=== PATIENT | female | born 1980 ===

== ENCOUNTER 2018-03-19 16:11 | Inpatient (IN) | payer BC, OTHER ==
[2018-03-19 16:12] VITALS: BMI 32.1
[2018-03-19] MEDS ORDERED: Sodium Chloride 0.9% 1,000 ML IV STA (17:51)
[2018-03-19] MEDS ORDERED: Morphine 4 MG/ML VIAL IV STA (17:51)
--- NOTE | 2018-03-19 18:18 | ED PDOC ---
HPI: Abdomen Time Seen by Provider: 03/19/18 17:47 Chief Complaint (Nursing): Abdominal Pain Chief Complaint (Provider): abdominal pain History Per: Patient History/Exam Limitations: no limitations Onset/Duration Of Symptoms: Hrs (12), Sudden Onset Current Symptoms Are (Timing): Still Present Context: Food Location Of Pain/Discomfort: RUQ, Epigastric Quality Of Discomfort: Sharp Associated Symptoms: Nausea, Vomiting, Loss Of Appetite Exacerbating Factors: None Alleviating Factors: None Additional Complaint(s): 37yo female approx 1 month post presents from [facility] urgent care for RUQ pain, nausea and one episode nonbloody vomiting this morning. Pain sharp, constant, no radiation. Was cleared by OB last week, no issues. Past Medical History Reviewed: Historical Data, Nursing Documentation, Vital Signs Vital Signs: Last Vital Signs Temp 97.9 F 03/19/18 17:05 Pulse 61 03/19/18 17:05 Resp 16 03/19/18 17:05 BP 120/78 03/19/18 17:05 Pulse Ox 99 03/19/18 17:05 - Medical History PMH: No Chronic Diseases - Surgical History Surgical History: No Surg Hx - Family History Family History: States: Unknown Family Hx - Social History Current smoker - smoking cessation education provided: No - Allergies Allergies/Adverse Reactions: Allergies Allergy/AdvReac Type Severity Reaction Status Date / Time No Known Allergies Allergy Verified 03/19/18 17:05 Review of Systems Constitutional: Negative for: Fever Eyes: Negative for: Vision Change Cardiovascular: Negative for: Chest Pain Respiratory: Negative for: Shortness of Breath Gastrointestinal: Positive for: Nausea, Vomiting, Abdominal Pain. Negative for: Melena Genitourinary Female: Negative for: Dysuria, Hematuria Musculoskeletal: Negative for: Neck Pain, Back Pain Neurological: Negative for: Weakness, Altered Mental Status, Headache Psych: Negative for: Suicidal ideation Physical Exam - Reviewed Nursing Documentation Reviewed: Yes Vital Signs Reviewed: Yes - Physical Exam Appears: Positive for: Well, Non-toxic, No Acute Distress Head Exam: Positive for: ATRAUMATIC, NORMAL INSPECTION, NORMOCEPHALIC Skin: Positive for: Normal Color, Warm, DRY Eye Exam: Positive for: Normal appearance, EOMI, PERRL. Negative for: Scleral icterus ENT: Positive for: Normal ENT Inspection Neck: Positive for: Normal, Painless ROM Cardiovascular/Chest: Positive for: Regular Rate, Rhythm Respiratory: Positive for: CNT, Normal Breath Sounds Gastrointestinal/Abdominal: Positive for: Soft, Tenderness (RUQ), Guarding. Negative for: Rebound Back: Positive for: Normal Inspection Extremity: Positive for: Normal ROM Neurologic/Psych: Positive for: Alert, Oriented - ECG O2 Sat by Pulse Oximetry: 99 Pulse Ox Interpretation: Normal Medical Decision Making Medical Decision Making: obtain US and labs r/o cholecystitis/ cholelithiasis/ ascending cholangitis given quality of pain, post Accession No. : [id number] Patient Name / ID : TORI SNIDER / [id number] Exam Date : 03/19/2018 17:50:48 ( Approved ) Study Comment : Sex / Age : F / 37Y Creator : Heather Alba MD Dictator : Heather Alba MD Importer Or Exporter : [employer] Consultant : Heather Alba MD Approver2 : Report Date : 03/19/2018 18:44:08 My Comment : Date of service: 03/19/2018 HISTORY: RUQ /flank pain nausea vomiting COMPARISON: None available. TECHNIQUE: Sonographic evaluation of the right upper quadrant of the abdomen. FINDINGS: LIVER: Measures 17.8 cm in length and appears within normal limits of shape, size, and echotexture. No focal hepatic mass identified. The main portal vein appears patent with normal directional flow. No intrahepatic bile duct dilatation. GALLBLADDER: Gallstones. Gallbladder sludge. No gallbladder wall thickening or pericholecystic edema. Positive sonographic Leonardo's sign as assessed by the tire repairer. COMMON BILE DUCT: Measures 6 mm. PANCREAS: Not well-visualized. RIGHT KIDNEY: Measures approximately 9.8 x 4.3 x 4.4 cm. No obstructing calculus or hydronephrosis identified. AORTA: Limited visualization appears grossly unremarkable. IVC: Limited visualization appears grossly unremarkable. OTHER FINDINGS: None . IMPRESSION: Cholelithiasis. Gallbladder sludge. Positive sonographic Leonardo's sign as assessed by the tire repairer. The gallbladder wall does not appear thickened. Correlate clinically for possibility of cholecystitis. endorsed Dr Patel pending labs and re-eval Disposition - Clinical Impression Clinical Impression: Abdominal pain - Patient ED Disposition Is Patient to be Admitted: Transfer of Care Counseled Patient/Family Regarding: Studies Performed, Diagnosis - Disposition Disposition: Transfer of Care Disposition Time: 19:05 Condition: STABLE Forms: [employer] (Faroese)
--- NOTE | 2018-03-19 18:48 | US ---
Date of service: 03/19/2018 HISTORY: RUQ /flank pain nausea vomiting COMPARISON: None available. TECHNIQUE: Sonographic evaluation of the right upper quadrant of the abdomen. FINDINGS: LIVER: Measures 17.8 cm in length and appears within normal limits of shape, size, and echotexture. No focal hepatic mass identified. The main portal vein appears patent with normal directional flow. No intrahepatic bile duct dilatation. GALLBLADDER: Gallstones. Gallbladder sludge. No gallbladder wall thickening or pericholecystic edema. Positive sonographic Leonardo's sign as assessed by the residential mental health worker. COMMON BILE DUCT: Measures 6 mm. PANCREAS: Not well-visualized. RIGHT KIDNEY: Measures approximately 9.8 x 4.3 x 4.4 cm. No obstructing calculus or hydronephrosis identified. AORTA: Limited visualization appears grossly unremarkable. IVC: Limited visualization appears grossly unremarkable. OTHER FINDINGS: None . IMPRESSION: Cholelithiasis. Gallbladder sludge. Positive sonographic Leonardo's sign as assessed by the residential mental health worker. The gallbladder wall does not appear thickened. Correlate clinically for possibility of cholecystitis.
[2018-03-19 19:05] LABS: BASO % 0.3 % (0.0-2.0); EOS % 0.3 % (0.0-4.0); HEMOGLOBIN 13.8 g/dL (12.0-16.0); LYMPH # 1.2 K/uL (1.0-4.3); LYMPH % 17.1 % (20.0-40.0); MEAN CORPUSCULAR HEMOGLOBIN 27.4 pg (27.0-31.0); MEAN CORPUSCULAR HGB CONC 32.7 g/dL (33.0-37.0); MEAN PLATELET VOLUME 8.6 fl (7.2-11.7); MONO # 0.3 K/uL (0.0-0.8); MONO % 4.7 % (0.0-10.0); NEUT # 5.3 K/uL (1.8-7.0); NEUT % 77.6 % (50.0-75.0); NRBC % 0.1 % (0.0-0.0); RBC 5.03 Mil/uL (3.80-5.20); RED CELL DISTRIBUTION WIDTH 13.9 % (11.5-14.5); WHITE BLOOD COUNT 6.8 K/uL (4.8-10.8)
--- NOTE | 2018-03-19 19:13 | ED PDOC ---
- Laboratory Results Result Diagrams: 03/19/18 18:39 03/19/18 18:35 - ECG O2 Sat by Pulse Oximetry: 99 (RA) Pulse Ox Interpretation: Normal Medical Decision Making Medical Decision Making: Time: 1899 Patient endorsed to me by Dr. Puckett, pending blood work and reevaluation. Time: 1999 Patient re-evaluated at bedside, states she is feeling well. Has elevation in LFTs Spoke with manager surgical who evaluated patient at bedside States that patient is to be admitted to Dr. Rolon for Acute Cholecystitis Scribe Attestation: Documented by Kenny Juarez, acting as a scribe for Ray Patel MD. Provider Scribe Attestation: All medical record entries made by the Scribe were at my direction and personally dictated by me. I have reviewed the chart and agree that the record accurately reflects my personal performance of the history, physical exam, medical decision making, and the department course for this patient. I have also personally directed, reviewed, and agree with the discharge instructions and disposition. Disposition Discussed With : Bert Woody - Clinical Impression Clinical Impression: Abdominal pain - POA Present On Arrival: None - Disposition Disposition: Admitted as In-Patient Disposition Time: 20:00 Condition: FAIR Forms: [facility] ([place]an)
[2018-03-19 19:14] LABS: ALB/GLOB RATIO 1.3 (1.0-2.1); ALBUMIN 4.4 g/dL (3.5-5.0); ALT/SGPT 221 U/L (9-52); AST/SGOT 190 U/L (14-36); BLOOD UREA NITROGEN 11 mg/dl (7-17); CALCIUM 9.6 mg/dL (8.4-10.2); GFR NON-AFRICAN AMERICAN > 60; LIPASE 365 U/L (23-300)
--- NOTE | 2018-03-19 19:40 | CP.PCM.CON ---
History of Present Illness - History of Present Illness History of Present Illness: SURGERY NOTE FOR DR. GIL Reason for consult: Cholelithiasis 37F presents to the ER for right upper quadrant pain. Patient states pain began this morning and she has never had anything like it before. Patient admits to having nausea and was vomiting during the day. Denies fevers and chills. She is currently one month post-. She last ate at 430pm. Denies any family history of gallbladder issue. PMH: denies PSH: denies Social: denies tobacco, alcohol, illicit drug use Allergies: NKDA Meds Allergies/Adverse Reactions: Allergies Allergy/AdvReac Type Severity Reaction Status Date / Time No Known Allergies Allergy Verified 03/19/18 17:05 Physical Exam - Constitutional Appears: Non-toxic, No Acute Distress - Eye Exam Eye Exam: EOMI, PERRL - ENT Exam ENT Exam: Mucous Membranes Moist - Respiratory Exam Respiratory Exam: Clear to Auscultation Bilateral, NORMAL BREATHING PATTERN - Cardiovascular Exam Cardiovascular Exam: REGULAR RHYTHM, +S1, +S2 - GI/Abdominal Exam GI & Abdominal Exam: Soft. absent: Distended, Firm, Guarding, Rebound, Rigid, Tenderness - Extremities Exam Extremities exam: Negative for: pedal edema, tenderness - Neurological Exam Neurological exam: Alert, Oriented x3 - Psychiatric Exam Psychiatric exam: Normal Affect, Normal Mood - Skin Skin Exam: Dry, Intact, Normal Color, Warm Results - Vital Signs Recent Vital Signs: Last Vital Signs Temp 97.9 F 03/19/18 17:05 Pulse 61 03/19/18 17:05 Resp 16 03/19/18 17:05 BP 120/78 03/19/18 17:05 Pulse Ox 99 03/19/18 19:13 - Labs Result Diagrams: 03/19/18 18:39 03/19/18 18:35 Labs: Laboratory Results - last 24 hr 03/19/18 03/19/18 18:35 18:39 WBC 6.8 RBC 5.03 Hgb 13.8 Hct 42.2 MCV 84.0 MCH 27.4 MCHC 32.7 L RDW 13.9 Plt Count 319 MPV 8.6 Neut % (Auto) 77.6 H Lymph % (Auto) 17.1 L [place] % (Auto) 4.7 Eos % (Auto) 0.3 Baso % (Auto) 0.3 Neut # (Auto) 5.3 Lymph # (Auto) 1.2 [place] # (Auto) 0.3 Eos # (Auto) 0.0 Baso # (Auto) 0.0 Sodium 140 Potassium 3.9 Chloride 101 Carbon Dioxide 26 Anion Gap 17 BUN 11 Creatinine 0.6 L Est GFR ( Amer) > 60 Est GFR (Non-Af Amer) > 60 Random Glucose 104 Calcium 9.6 Total Bilirubin 2.1 H AST 190 H ALT 221 H Alkaline Phosphatase 143 H Total Protein 7.9 Albumin 4.4 Globulin 3.5 Albumin/Globulin Ratio 1.3 Lipase 365 H Assessment & Plan - Assessment and Plan (Free Text) Assessment: 37F with Cholecystitis, possible Pancreatitis Plan: - NPO - IV Fluid - Pain control - Anti-emetic - Antibiotics - MRCP in AM - Repeat labs in AM Discussed with Dr. Gonzales Woody, PGY3
--- NOTE | 2018-03-19 20:08 | CP.PCM.HP ---
History of Present Illness - History of Present Illness History of Present Illness: SURGERY NOTE FOR DR. GIL Reason for consult: Cholelithiasis 37F presents to the ER for right upper quadrant pain. Patient states pain began this morning and she has never had anything like it before. Patient admits to having nausea and was vomiting during the day. Denies fevers and chills. She is currently one month post-. She last ate at 430pm. Denies any family history of gallbladder issue. PMH: denies PSH: denies Social: denies tobacco, alcohol, illicit drug use Allergies: NKDA Present on Admission - Present on Admission Any Indicators Present on Admission: No Past Patient History - Past Social History Smoking Status: Never Smoked - PSYCHIATRIC Hx Substance Use: No - SURGICAL HISTORY Hx Surgeries: No - ANESTHESIA Hx Anesthesia: No Meds Allergies/Adverse Reactions: Allergies Allergy/AdvReac Type Severity Reaction Status Date / Time No Known Allergies Allergy Verified 03/19/18 17:05 Physical Exam - Constitutional Appears: Non-toxic, No Acute Distress - ENT Exam ENT Exam: Mucous Membranes Moist - Respiratory Exam Respiratory Exam: Clear to Auscultation Bilateral, NORMAL BREATHING PATTERN - Cardiovascular Exam Cardiovascular Exam: REGULAR RHYTHM, +S1, +S2 - GI/Abdominal Exam GI & Abdominal Exam: Soft, Tenderness (Epigastric/RUQ tenderness). absent: Distended, Firm, Guarding, Rebound, Rigid - Extremities Exam Extremities exam: Negative for: pedal edema, tenderness - Neurological Exam Neurological exam: Alert, Oriented x3 - Psychiatric Exam Psychiatric exam: Normal Affect, Normal Mood - Skin Skin Exam: Dry, Intact, Normal Color, Warm Results - Vital Signs Recent Vital Signs: Last Vital Signs Temp 97.9 F 03/19/18 17:05 Pulse 61 03/19/18 17:05 Resp 16 03/19/18 17:05 BP 120/78 03/19/18 17:05 Pulse Ox 99 03/19/18 19:13 - Labs Result Diagrams: 03/19/18 18:39 03/19/18 18:35 Labs: Laboratory Results - last 24 hr 03/19/18 03/19/18 18:35 18:39 WBC 6.8 RBC 5.03 Hgb 13.8 Hct 42.2 MCV 84.0 MCH 27.4 MCHC 32.7 L RDW 13.9 Plt Count 319 MPV 8.6 Neut % (Auto) 77.6 H Lymph % (Auto) 17.1 L [place] % (Auto) 4.7 Eos % (Auto) 0.3 Baso % (Auto) 0.3 Neut # (Auto) 5.3 Lymph # (Auto) 1.2 [place] # (Auto) 0.3 Eos # (Auto) 0.0 Baso # (Auto) 0.0 Sodium 140 Potassium 3.9 Chloride 101 Carbon Dioxide 26 Anion Gap 17 BUN 11 Creatinine 0.6 L Est GFR ( Amer) > 60 Est GFR (Non-Af Amer) > 60 Random Glucose 104 Calcium 9.6 Total Bilirubin 2.1 H AST 190 H ALT 221 H Alkaline Phosphatase 143 H Total Protein 7.9 Albumin 4.4 Globulin 3.5 Albumin/Globulin Ratio 1.3 Lipase 365 H Assessment & Plan - Assessment and Plan (Free Text) Assessment: 37F with Cholecystitis, possible Pancreatitis Plan: - NPO - IV Fluid - Pain control - Anti-emetic - Antibiotics - MRCP in AM - Repeat labs in AM Discussed with Dr. Gonzales Woody, PGY3
[2018-03-19] MEDS ORDERED: Piperacillin/Tazobact 3.375 gm Inj IVPB ONE (21:15)
[2018-03-19] MEDS: Piperacillin/Tazobact 3.375 GM in Sodium Chloride 0.9% 100 ML IVPB SCH (21:17)
[2018-03-19] MEDS: Lactated Ringer's 1,000 ML IV SCH (21:24)
[2018-03-19] MEDS ORDERED: HYDROmorphone 1 mg/ml ISec IVP PRN (21:30)
[2018-03-20] MEDS ORDERED: Piperacillin/Tazobact 3.375 gm Inj IVPB ONE (04:30)
[2018-03-20] MEDS: Piperacillin/Tazobact 3.375 GM in Sodium Chloride 0.9% 100 ML IVPB SCH ×4 (04:36→23:19)
[2018-03-20] MEDS: Lactated Ringer's 1,000 ML IV SCH ×3 (04:40→23:21)
[2018-03-20 05:20] LABS: SQUAMOUS EPITHIAL 7 /hpf (0-5); URINE BACTERIA MANY (<OCC); URINE BILIRUBIN SMALL (NEGATIVE); URINE BLOOD MODERATE (NEGATIVE); URINE CLARITY CLOUDY (Clear); URINE COLOR AMBER (YELLOW); URINE GLUCOSE (UA) NEG (NEGATIVE); URINE LEUKOCYTE ESTERASE LARGE Leu/uL (Negative); URINE PROTEIN 30 mg/dL (NEGATIVE)
[2018-03-20 06:11] LABS: BASO % 0.6 % (0.0-2.0); EOS # 0.1 K/uL (0.0-0.7); EOS % 1.5 % (0.0-4.0); HEMOGLOBIN 12.4 g/dL (12.0-16.0); LYMPH # 1.7 K/uL (1.0-4.3); LYMPH % 27.9 % (20.0-40.0); MEAN CELL VOLUME 84.3 fl (81.0-99.0); MEAN CORPUSCULAR HEMOGLOBIN 27.9 pg (27.0-31.0); MEAN CORPUSCULAR HGB CONC 33.1 g/dL (33.0-37.0); MEAN PLATELET VOLUME 8.6 fl (7.2-11.7); MONO # 0.4 K/uL (0.0-0.8); MONO % 6.4 % (0.0-10.0); NEUT # 3.9 K/uL (1.8-7.0); NEUT % 63.6 % (50.0-75.0); RBC 4.43 Mil/uL (3.80-5.20); RED CELL DISTRIBUTION WIDTH 14.1 % (11.5-14.5); WHITE BLOOD COUNT 6.1 K/uL (4.8-10.8)
[2018-03-20 06:42] LABS: ALB/GLOB RATIO 1.2 (1.0-2.1); ALBUMIN 3.5 g/dL (3.5-5.0); ALT/SGPT 296 U/L (9-52); AST/SGOT 250 U/L (14-36); BLOOD UREA NITROGEN 11 mg/dl (7-17); CALCIUM 8.5 mg/dL (8.4-10.2); GFR NON-AFRICAN AMERICAN > 60
--- NOTE | 2018-03-20 07:13 | CP.PCM.PN ---
Subjective - Date & Time of Evaluation Date of Evaluation: 03/20/18 Time of Evaluation: 07:11 - Subjective Subjective: SURGERY NOTE FOR DR. GIL 37F seen and examined at bedside. Patient continues to complain of abdominal pain, denies nausea, vomiting. Pain in the epigastric/RUQ region. Objective - Vital Signs/Intake and Output Vital Signs (last 24 hours): Temp Pulse Resp BP Pulse Ox 98.1 F 57 L 18 120/72 98 03/20/18 06:01 03/20/18 06:01 03/20/18 06:01 03/20/18 06:01 03/20/18 06:01 - Medications Medications: Current Medications Hydromorphone HCl (Dilaudid) 1 mg IVP Q4 PRN PRN Reason: Pain, severe (8-10) Last Admin: 03/19/18 21:47 Dose: 1 mg Lactated Ringer's (Lactated Ringer's) 1,000 mls @ 125 mls/hr IV .Q8H KACY Last Admin: 03/20/18 04:40 Dose: 125 mls/hr Piperacillin Sod/Tazobactam (Sod 3.375 gm/ Sodium Chloride) 100 mls @ 100 mls/hr IVPB Q6 KACY; Protocol Last Admin: 03/20/18 04:36 Dose: 100 mls/hr Ketorolac Tromethamine (Toradol) 30 mg IVP Q6 PRN PRN Reason: Pain, severe (8-10) Last Admin: 03/20/18 05:28 Dose: 30 mg Ondansetron HCl (Zofran Inj) 4 mg IVP Q6 PRN PRN Reason: Nausea/Vomiting Last Admin: 03/19/18 22:50 Dose: 4 mg - Labs Labs: 03/20/18 05:35 03/20/18 05:35 - Constitutional Appears: Non-toxic, No Acute Distress - Respiratory Exam Respiratory Exam: Clear to Ausculation Bilateral, NORMAL BREATHING PATTERN - Cardiovascular Exam Cardiovascular Exam: REGULAR RHYTHM, +S1, +S2 - GI/Abdominal Exam GI & Abdominal Exam: Soft, Tenderness (epigastric/RUQ region). absent: Distended, Firm, Guarding, Rigid, Rebound Assessment and Plan - Assessment and Plan (Free Text) Assessment: 37F with symptomatic cholelithiasis, possible choledocholithiasis Plan: - NPO - IVF - Antibiotics - MRCP today - If neg, then will plan for OR tomm Discussed with Dr. Gonzales Woody, PGY3
--- NOTE | 2018-03-20 14:47 | MRI ---
MRCP Indication: r/o choledocholithiasis Technique: Multiplanar, multisequence MR images of the abdomen were obtained, including heavily T2 weighted MRCP images of the biliary system. Rotating maximum intensity projection images of the biliary system were generated. A total of 581 images were submitted for review. Comparison: Limited abdominal ultrasound performed 03/19/18 Findings: The liver appears grossly unremarkable on this noncontrast examination. Gallstones. Gallbladder distension. Gallbladder wall thickening/pericholecystic edema. There is no intrahepatic biliary ductal dilatation. The common bile duct appears within normal limits in caliber and tapers distally. The pancreatic duct appears within normal limits of caliber. No filling defects are seen in the common bile duct or pancreatic duct. The visualized portions of the noncontrast adrenal glands, kidneys, spleen, and pancreas appear unremarkable. No bulky abdominal lymphadenopathy is seen. No ascites. No suspicious osseous lesions appreciated. Impression: Cholelithiasis. Gallbladder distension. Gallbladder wall thickening/pericholecystic edema. Appearance consistent with acute cholecystitis. Correlate clinically. No filling defects seen within the common bile duct which appears within normal limits of caliber.
[2018-03-21] MEDS: Lactated Ringer's 1,000 ML IV SCH ×3 (03:27→21:33)
[2018-03-21] MEDS: Piperacillin/Tazobact 3.375 GM in Sodium Chloride 0.9% 100 ML IVPB SCH ×4 (05:15→21:34)
[2018-03-21 09:45] LABS: BASO % 0.7 % (0.0-2.0); EOS # 0.2 K/uL (0.0-0.7); EOS % 3.8 % (0.0-4.0); HEMOGLOBIN 11.9 g/dL (12.0-16.0); LYMPH # 1.8 K/uL (1.0-4.3); LYMPH % 36.9 % (20.0-40.0); MEAN CELL VOLUME 85.1 fl (81.0-99.0); MEAN CORPUSCULAR HGB CONC 32.9 g/dL (33.0-37.0); MEAN PLATELET VOLUME 8.7 fl (7.2-11.7); MONO # 0.3 K/uL (0.0-0.8); MONO % 6.4 % (0.0-10.0); NEUT # 2.6 K/uL (1.8-7.0); NEUT % 52.2 % (50.0-75.0); NRBC % 0.1 % (0.0-0.0); RBC 4.25 Mil/uL (3.80-5.20); RED CELL DISTRIBUTION WIDTH 14.3 % (11.5-14.5)
[2018-03-21 09:57] LABS: ALB/GLOB RATIO 1.1 (1.0-2.1); ALBUMIN 3.3 g/dL (3.5-5.0); ALT/SGPT 209 U/L (9-52); AST/SGOT 92 U/L (14-36); BLOOD UREA NITROGEN 7 mg/dl (7-17); CALCIUM 8.5 mg/dL (8.4-10.2); GFR NON-AFRICAN AMERICAN > 60
[2018-03-21] MEDS ORDERED: Bupivacaine 0.5% Inj(30mL) ONE (14:44)
[2018-03-21] MEDS ORDERED: Lidocaine 1% Inj (20ml) ONE (14:44)
[2018-03-21] MEDS ORDERED: ceFAZolin IV 1 gm in Dextrose 0 GM/0 ML BAG IVPB ONE (15:02)
[2018-03-21] MEDS ORDERED: Propofol 10 mg/ml Inj (20 ML) ONE (15:23)
[2018-03-21] MEDS ORDERED: Lidocaine 4% (Laryng-O-Jet) Kit MM ONE (15:23)
[2018-03-21] MEDS ORDERED: Rocuronium 10 mg/ml (5 ml) ONE (15:23)
[2018-03-21] MEDS ORDERED: Succinylcholine Chloride 20 mg/ml Syr (5 ml) IV ONE (15:23)
[2018-03-21] MEDS ORDERED: Dexamethasone 4 mg/1 ml ONE (15:27)
[2018-03-21] MEDS ORDERED: Lactated Ringer's 1,000 ML IV ONE ×3 (16:50→18:49)
[2018-03-21] MEDS ORDERED: Midazolam 2 MG/2 ML VIAL ONE (16:53)
[2018-03-21] MEDS ORDERED: Neostigmine 1:1000 (1 mg/ml) Inj ONE (17:58)
[2018-03-21] MEDS ORDERED: HYDROmorphone 0.5 mg/0.5 ml ISec IVP PRN (18:37)
--- NOTE | 2018-03-21 18:44 | PCM.SURG1 ---
Surgeon's Initial Post Op Note - Surgeon's Notes Surgeon: MD Gonzales Business Performance Analyst: Bong, PGY3 Pre-Operative Diagnosis: Acute cholecystitis Operative Findings: Inflammed gallbladder, gallstones Post-Operative Diagnosis: Acute cholecystitis Operation Performed: Laparoscopic cholecystitis Specimen/Specimens Removed: Gallbladder Estimated Blood Loss: EBL {In ML}: 5 Date of Surgery/Procedure: 03/21/18 Time of Surgery/Procedure: 18:44
[2018-03-21] MEDS ORDERED: Lactated Ringer's 1,000 ML IV SCH (18:45)
[2018-03-22] MEDS: Piperacillin/Tazobact 3.375 GM in Sodium Chloride 0.9% 100 ML IVPB SCH (03:32)
[2018-03-22] MEDS: Lactated Ringer's 1,000 ML IV SCH (04:31)
[2018-03-22 04:49] VITALS: O2SAT 97
[2018-03-22 05:21] LABS: BASO % 0.2 % (0.0-2.0); HEMOGLOBIN 11.8 g/dL (12.0-16.0); LYMPH % 19.8 % (20.0-40.0); MEAN CELL VOLUME 84.1 fl (81.0-99.0); MEAN CORPUSCULAR HEMOGLOBIN 28.3 pg (27.0-31.0); MEAN CORPUSCULAR HGB CONC 33.6 g/dL (33.0-37.0); MEAN PLATELET VOLUME 8.9 fl (7.2-11.7); MONO # 0.3 K/uL (0.0-0.8); MONO % 5.4 % (0.0-10.0); NEUT # 3.7 K/uL (1.8-7.0); NEUT % 74.6 % (50.0-75.0); NRBC % 0.1 % (0.0-0.0); RBC 4.17 Mil/uL (3.80-5.20); RED CELL DISTRIBUTION WIDTH 13.7 % (11.5-14.5)
[2018-03-22 05:40] LABS: ALB/GLOB RATIO 1.1 (1.0-2.1); ALBUMIN 3.3 g/dL (3.5-5.0); ALT/SGPT 162 U/L (9-52); AST/SGOT 56 U/L (14-36); BLOOD UREA NITROGEN 8 mg/dl (7-17); CALCIUM 8.5 mg/dL (8.4-10.2); GFR NON-AFRICAN AMERICAN > 60
[2018-03-22] MEDS ORDERED: Oxycodone/Acetaminophen 5/325 mg Tab PO PRN (06:53)
[2018-03-22 08:42] VITALS: BP 118/75; PULSE 56; RESP 20; TEMP 98.1
--- NOTE | 2018-03-22 10:27 | CP.PCM.DIS ---
Provider - Provider Date of Admission: 03/19/18 19:57 Attending physician: Marlon Rolon MD Time Spent in preparation of Discharge (in minutes): 35 Diagnosis - Discharge Diagnosis (1) S/P laparoscopic cholecystectomy Status: Acute Priority: High (2) Acute cholecystitis Status: Resolved Priority: High Hospital Course - Lab Results Lab Results: Most Recent Lab Values WBC 5.0 K/uL (4.8-10.8) 03/22/18 04:25 RBC 4.17 Mil/uL (3.80-5.20) 03/22/18 04:25 Hgb 11.8 g/dL (12.0-16.0) L 03/22/18 04:25 Hct 35.1 % (34.0-47.0) 03/22/18 04:25 MCV 84.1 fl (81.0-99.0) 03/22/18 04:25 MCH 28.3 pg (27.0-31.0) 03/22/18 04:25 MCHC 33.6 g/dL (33.0-37.0) 03/22/18 04:25 RDW 13.7 % (11.5-14.5) 03/22/18 04:25 Plt Count 277 K/uL (130-400) 03/22/18 04:25 MPV 8.9 fl (7.2-11.7) 03/22/18 04:25 Neut % (Auto) 74.6 % (50.0-75.0) 03/22/18 04:25 Lymph % (Auto) 19.8 % (20.0-40.0) L 03/22/18 04:25 [place] % (Auto) 5.4 % (0.0-10.0) 03/22/18 04:25 Eos % (Auto) 0.0 % (0.0-4.0) 03/22/18 04:25 Baso % (Auto) 0.2 % (0.0-2.0) 03/22/18 04:25 Neut # (Auto) 3.7 K/uL (1.8-7.0) 03/22/18 04:25 Lymph # (Auto) 1.0 K/uL (1.0-4.3) 03/22/18 04:25 [place] # (Auto) 0.3 K/uL (0.0-0.8) 03/22/18 04:25 Eos # (Auto) 0.0 K/uL (0.0-0.7) 03/22/18 04:25 Baso # (Auto) 0.0 K/uL (0.0-0.2) 03/22/18 04:25 Sodium 138 mmol/l (132-148) 03/22/18 04:25 Potassium 3.7 MMOL/L (3.6-5.0) 03/22/18 04:25 Chloride 100 mmol/L (98-107) 03/22/18 04:25 Carbon Dioxide 26 mmol/L (22-30) 03/22/18 04:25 Anion Gap 16 (10-20) 03/22/18 04:25 BUN 8 mg/dl (7-17) 03/22/18 04:25 Creatinine 0.7 mg/dl (0.7-1.2) 03/22/18 04:25 Est GFR ( Amer) > 60 03/22/18 04:25 Est GFR (Non-Af Amer) > 60 03/22/18 04:25 Random Glucose 111 mg/dL (65-105) H 03/22/18 04:25 Calcium 8.5 mg/dL (8.4-10.2) 03/22/18 04:25 Phosphorus 4.2 mg/dl (2.5-4.5) 03/20/18 05:35 Magnesium 1.7 MG/DL (1.6-2.3) 03/20/18 05:35 Total Bilirubin 0.4 mg/dl (0.2-1.3) 03/22/18 04:25 AST 56 U/L (14-36) H D 03/22/18 04:25 ALT 162 U/L (9-52) H D 03/22/18 04:25 Alkaline Phosphatase 109 U/L (38-126) 03/22/18 04:25 Total Protein 6.2 G/DL (6.3-8.2) L 03/22/18 04:25 Albumin 3.3 g/dL (3.5-5.0) L 03/22/18 04:25 Globulin 2.9 gm/dL (2.2-3.9) 03/22/18 04:25 Albumin/Globulin Ratio 1.1 (1.0-2.1) 03/22/18 04:25 Lipase 365 U/L (23-300) H 03/19/18 18:35 Urine Color [place] (YELLOW) 03/20/18 04:50 Urine Clarity Cloudy (Clear) 03/20/18 04:50 Urine pH 6.0 (5.0-8.0) 03/20/18 04:50 Ur Specific [place] 1.020 (1.003-1.030) 03/20/18 04:50 Urine Protein 30 mg/dL (NEGATIVE) 03/20/18 04:50 Urine Glucose (UA) Neg mg/dL (NEGATIVE) 03/20/18 04:50 Urine Ketones Negative mg/dL (NEGATIVE) 03/20/18 04:50 Urine Blood Moderate (NEGATIVE) 03/20/18 04:50 Urine Nitrate Negative (NEGATIVE) 03/20/18 04:50 Urine Bilirubin Small (NEGATIVE) 03/20/18 04:50 Urine Urobilinogen 2.0 mg/dL (0.2-1.0) H 03/20/18 04:50 Ur Leukocyte Esterase Large Perri/uL (Negative) 03/20/18 04:50 Urine RBC (Auto) 15 /hpf (0-3) H 03/20/18 04:50 Urine Microscopic WBC 95 /hpf (0-5) H 03/20/18 04:50 Ur Squamous Epith Cells 7 /hpf (0-5) H 03/20/18 04:50 Urine Bacteria Many (<OCC) H 03/20/18 04:50 - Hospital Course Hospital Course: Pt is a 37F with no significant PMH who presented to the ED with one day of right upper quadrant pain. US showed cholelithiasis and patient had hyperbilirubinemia. MRCP was ordered to rule out choledocholithiasis and was negative and patient's hyperbilirubinemia resolved by hospital day 2 and patient was taken to the OR for a laparoscopic cholecystectomy. Surgery was performed without complication and she recovered well, POD#1 tolerating regular diet, ambulation, pain controlled on PO pain medication, hemodynamically stable. Patient was discharged to home with PO pain medication and instructions to follow up with Dr. Rolon in his office in 2 weeks and to return to the ER for any concerning symptoms. For full hospital course, refer to chart Discharge Exam - Head Exam Head Exam: ATRAUMATIC, NORMOCEPHALIC - Eye Exam Eye Exam: Normal appearance. absent: Conjunctival injection, Scleral icterus - ENT Exam ENT Exam: Mucous Membranes Moist, Normal Oropharynx - Respiratory Exam Respiratory Exam: NORMAL BREATHING PATTERN. absent: Accessory Muscle Use, Respiratory Distress - Cardiovascular Exam Cardiovascular Exam: RRR - GI/Abdominal Exam GI & Abdominal Exam: Soft, Tenderness (RUQ and pushpa-incisional mild tenderness). absent: Distended, Rebound Additional comments: incisions well approximated with dermabond - Extremities Exam Extremities exam: normal inspection, pedal pulses present - Neurological Exam Neurological exam: Alert, Oriented x3 - Psychiatric Exam Psychiatric exam: Normal Affect, Normal Mood - Skin Skin Exam: Dry, Normal Color, Warm Discharge Plan - Discharge Medications Prescriptions: oxyCODONE/Acetaminophen [Percocet 5/325 mg Tab] 1 tab PO Q6H PRN #15 tab PRN Reason: Pain, Moderate (4-7) - Follow Up Plan Condition: FAIR Disposition: HOME/ ROUTINE Instructions: Cholecystectomy (DC) Additional Instructions: Call Dr. Rolon's office for follow up appointment in 2 weeks Take pain medication as needed for pain--take stool softeners for any constipation, do not drive or operate heavy machinery while taking pain medication Do not lift ?10 pounds for 4 weeks Resume diet as tolerated--recommend no fat for 2 weeks Return to ER or call Dr. Rolon's office for any severe nausea, vomiting, fever >100.4, or any other concerning symptoms. You may shower, but do not soak or swim, surgical glue will fall off on its own--do not remove Referrals: Bubba Reynoso MD [Family Provider] - Marlon Rolon MD [Staff Provider] -
--- NOTE | 2018-03-25 07:13 | OP ---
` PROCEDURE DATE: 03/21/2018 PREOPERATIVE DIAGNOSIS: Acute cholecystitis. POSTOPERATIVE DIAGNOSIS: Acute cholecystitis. PROCEDURE PERFORMED: Laparoscopic cholecystectomy. SURGEON: Marlon Rolon MD ORNAMENTAL IRONWORKER: Bert Woody DO, PGY-3 ANESTHESIA: General. ANESTHESIOLOGIST: Jimmie Garland MD ESTIMATED BLOOD LOSS: 5 mL. DESCRIPTION OF PROCEDURE: Upon sedation and intubation, the patient's abdomen was prepped and draped in the usual sterile fashion. After time-out was called, approximately 5 mL of Marcaine was infused infraumbilically and a 12 mm transverse incision was made infraumbilically. Dissection was done all the way to the fascia. Abdomen was entered via Veress needle with entering pressures of 1mmhg. The abdomen was insufflated up to a pressure of 15mmhg. Upon insufflation, a trocar was placed into the abdomen via Visiport. Upon access in the intra-abdominal space, a camera was used to visualize the intra-abdominal space where the gallbladder was seen and bowel and omentum were seen without any injury upon entry. Three more incisions were made, two on the right subcostal region and one subxiphoid region, all 5 mm in diameter. Upon entry into the abdomen with all 4 ports placed, the gallbladder was grasped and Veress needle was used to drain the gallbladder. Dark green bile was seen aspirating through the syringe. Approximately, 35 mL of bile was aspirated. Upon decompressing the gallbladder, the fundus was grasped and retracted cephalad and the infundibulum was grasped and retracted laterally to access the triangle of Calot. Cystic duct was immediately seen entering the gallbladder with peritoneum in front of it which was dissected out using a [place] dissector. Upon dissecting out the cystic ducts, [place] dissector was placed posterior to it showing no major structures behind the cystic duct. Further dissection was done posteriorly until the cystic artery was seen directly entering the gallbladder. Upon cleaning up the cystic artery, the view of critical safety was achieved with the cystic duct, cystic artery going directly into the gallbladder and the liver seen between both structures. The cystic duct was clipped with 5 mm clips distally, two distally and one proximally and transected with laparoscopic scissors. The same thing was done with the cystic artery, which was clipped two distally, one proximally and transected with laparoscopic scissors. Upon transection of the cystic duct and cystic artery, electrocautery was used using an electrocautery hook, and the gallbladder was dissected off the liver bed using electrocautery. There was no bleeding noted from the liver bed, and the gallbladder was taken off the liver bed without entry into the gallbladder. Gallbladder was placed inside an EndoCatch bag, which was taken out via the infraumbilical incision under direct visualization after switching to a 5 mm scope, which was placed in the subxiphoid region. Upon taking out the specimen, final look into the gallbladder fossa was done, which showed no active bleeding, no fluid collection. The patient's abdomen was deflated and all four trocars were removed. The infra-umbilical incision was closed in the fascia with 0 Vicryl in a [id number] stitch. All four skin incisions were closed with 4-0 Monocryl in an interrupted fashion and Dermabond glue on top of all four. The patient tolerated the procedure well and was transferred to the PACU without any complications upon waking up and getting extubated from anesthesia. Estimated blood loss was 5 mL. Bert Woody DO Marlon Rolon MD MTDNancy
== END 2018-03-22 12:47 | disposition home or self-care (01) | DRG 419 ==
LOC: H.ER 16:11 → H.ERHOLD 19:57 → H.TEL 03-20 06:13
PROVIDERS: ADMIT Surgery; ATTEND Surgery
PROC: 0FT44ZZ Resection of Gallbladder, Percutaneous Endoscopic Approach (ICD-10-PCS; principal; 2018-03-21 13:00)
DX: K80.00 Calculus of gallbladder with acute cholecystitis without obstruction (principal); E80.6 Other disorders of bilirubin metabolism; R79.89 Other specified abnormal findings of blood chemistry